=== PATIENT | female | born 1935 | race Caucasian/White ===

== ENCOUNTER 2016-10-30 17:24 | Inpatient (IN) | payer MEDICARE, BC ==
[2016-10-30 19:08] LABS: BASOPHIL# 0.4 X 10^3uL (0.0-0.1); BASOPHILS 4.8 % (0.0-2.0); EOSINOPHILS# 0.2 X 10^3uL (0.0-0.4); HEMATOCRIT 36.8 % (36.0-48.0); HEMOGLOBIN 12.1 g/dL (12.0-16.0); LYMPHOCYTES 16.1 % (20.0-40.0); LYMPHOCYTES# 1.2 X 10^3uL (0.8-3.8); MEAN CELL VOLUME 92.2 fL (80.0-100.0); MEAN CORPUSCULAR HEMOGLOBIN 30.4 pg (29.0-35.0); MEAN PLATELET VOLUME 10.4 fL (7.4-10.4); MONOCYTES 11.7 % (2.0-10.0); MONOCYTES# 0.9 X 10^3uL (0.2-1.0); NEUTROPHILS 65.4 % (54.0-75.0); NEUTROPHILS# 4.9 X 10^3uL (2.6-6.7); PLATELET COUNT 262 X 10^3uL (130-440); RED BLOOD COUNT 3.99 X 10^6uL (4.20-6.10); RED CELL DISTRIBUTION WIDTH 14.4 % (11.5-14.5); WHITE BLOOD COUNT 7.6 X 10^3uL (3.9-10.7)
[2016-10-30 19:09] LABS: A/G RATIO 1.3; ALBUMIN 3.9 g/dL (3.5-5.0); ALKALINE PHOSPHATASE 77 U/L (38-126); ALT 66 U/L (9-52); AST 33 U/L (14-36); BILIRUBIN, TOTAL 0.5 mg/dL (0.2-1.3); BLOOD UREA NITROGEN 17 mg/dL (7-17); CALCIUM 9.6 mg/dL (8.4-10.2); CHLORIDE 107 mmol/L (98-107); GLUCOSE 106 mg/dL (70-100); POTASSIUM 4.4 mmol/L (3.5-5.1); SODIUM 141 mmol/L (137-145)
[2016-10-30 19:22] LABS: TROPONIN I < 0.012 ng/mL (0.00-0.034)
[2016-10-30] MEDS ORDERED: RIVAROXABAN 10 MG TABLET PO ONE (19:25)
[2016-10-30 19:42] LABS: INR 1.2
[2016-10-30] MEDS ORDERED: FUROSEMIDE 40 MG/4 ML VIAL ONE (20:15)
--- NOTE | 2016-10-30 21:10 | CT REPORT ---
History: Shortness of breath Comparison: None Technique: This examination was performed using automated exposure control, adjustment of mA or kV according to patient size, and/or use of iterative reconstruction technique. 5 mm transaxial images through the ch est with coronal reformatted images. 3-D images were also performed to better evaluate the pulmonary arteries Contrast: 100 cc Omnipaque 300 Findings: Soft tissues: Visualized portions of the thyroid gland: Non enlarged The thoracic aorta: Non aneurysmal. Pulmonary arteries: No evidence of pulmonary embolus seen. There is a moderately large hiatal hernia seen. No evidence of pericardial effusion. Scattered small mediastinal lymph nodes likely reactive. Status post cholecystectomy. Adrenal glands are not enlarged Lung windows: Bilateral large pleural effusions, right greater than left. Bibasilar compressive atele ctatic change adjacent to the large pleural effusions. Additional air bronchograms compatible with ai rspace consolidation seen at the right greater than left lung base. Bronchiectasis changes bilateral lungs involving the upper and lower lobes. No evidence of pneumothor ax. Cicatricial changes at the lung apices bilaterally. Subpleural reticular nodular thickening at the peripheral right middle lobe, image [id number], series 6. F indings are adjacent to surgical mel[place] in the right chest/breast soft tissues. There is soft tissue deformity and soft tissue prominence of the right breast adjacent to the surgical mel[place]. Findings could represent sequela of postradiation change but follow-up is recommended to exclude lymphangitic spread of tumor versus post infectious or post inflammatory disease. Correlation with the patient's m ammographic findings is also recommended. Osseous structures: Kyphosis of the thoracic spine. Vacuum disc phenomenon and endplate sclerosis at the thoracolumbar junction. Multilevel ossification of the anterior longitudinal ligament. Impression: No evidence of pulmonary embolus. Large bilateral pleural effusions. Bibasilar atelectatic change and right greater than left lower lob e airspace consolidation. Peripheral reticular nodular infiltration right middle lobe which could represent sequela of infectio us or inflammatory disease and scarring versus postradiation change. However follow-up recommended to exclude lymphangitic spread of tumor given evidence of surgical changes in the right breast adjacent to this location. Correlate with mammographic findings. Final Electronic Signature: This report was electronically signed by Gen Emmanuel MD on 10/30/2016 9: 08 PM. umesh /
[2016-10-30] MEDS ORDERED: HOME MEDICATION LIST NEEDED 1 EA EACH MISC ONE (21:40)
[2016-10-30] MEDS ORDERED: ACETAMINOPHEN 325 MG TABLET PO PRN (21:40)
[2016-10-30] MEDS ORDERED: ZOLPIDEM TARTRATE 5 MG TABLET PO PRN (21:40)
[2016-10-30] MEDS ORDERED: MAG-AL PLUS XS SUSP 30 ML UDC PO PRN (21:40)
[2016-10-30] MEDS ORDERED: POLYETHYLENE GLYCOL 3350 17 GM POWD.PACK PO PRN (21:40)
--- NOTE | 2016-10-30 23:13 | ER PHYSICIAN DOCUMENTATION ---
Physician Documentation [facility] Name:Summer Butler Age:80 yrs Sex:Female :1935 Arrival Date:10/30/2016 Time:17:24 BedD-1 Private MD: Thomas Subramanian Disposition: 10/30 20:53 Critical Care:. be Disposition: 10/30/16 20:54 Admit ordered for Michael Negrete. Preliminary diagnosis are Atrial Fibrillation, CHF (Congestive Heart Failure). - Bed requested for Medical/Surgical. - Condition is Improved. - Problem is new. - Symptoms have improved. 23 HR OBS No HPI: 17:42 This 80 yrs old Female presents to ER with complaints of Shortness Of Breath. 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 4 days ago noted increasing dyspnea, worse in the last two tl1 days since returning home to after a month vacation in [place]. Does have a h/o hypothyroidism on synthroid.. Historical: - Allergies: No known drug Allergies; Actonel; Hydrocodone-Acetaminophen; - Home Meds: 1. amlodipine 5 mg oral tab 1 tab once daily 2. hydroxychloroquine 200 mg oral tab 1 tab once daily 3. sulfacetamide sodium 10 % ophthalmic drop 1 drop every 2 hours 4. levothyroxine 50 mcg oral cap 1 cap once daily 5. losartan 50 mg oral tab 1 tab once daily 6. Estradiol Oral Unknown twice weekly 7. restasis - PMHx: CVA; urinary retention; RHEUMATOID ARTHRITIS; HYPOTHYROIDISM; hiatal hernia; ANXIETY; - PSHx: LUMPECTOMY; Cholecysectomy; laminectomy; Tonsillectomy; TUBAL LIGATION; - Tetanus: unknown. - Ebola Screening: : No symptoms or risks identified at this time. . - Immunization history: Unable to Obtain Pneumococcal vaccine status is unknown, Flu Vaccine < 1 year Flu Vaccine < 1 year. - Social history: Smoking status: Patient states was never smoker of tobacco. ROS: 20:13 Respiratory: Positive for dyspnea on exertion, shortness of breath, Negative for be hemoptysis, orthopnea, pleurisy. 20:13 All other systems are negative. Exam: 20:13 Constitutional: This is a well developed, well nourished patient who is awake, alert, be and in no acute distress. Head/Face: Normocephalic, atraumatic. Eyes: Pupils equal round and reactive to light, extra-ocular motions intact. Lids and lashes normal. Conjunctiva and sclera are non-icteric and not injected. Cornea within normal limits. Periorbital areas with no swelling, redness, or edema. ENT: Nares patent. No nasal discharge, no septal abnormalities noted. Tympanic membranes are normal and external auditory canals are clear. Oropharynx with no redness, swelling, or masses, exudates, or evidence of obstruction, uvula midline. Mucous membranes moist. Neck: Trachea midline, no thyromegaly or masses palpated, and no cervical lymphadenopathy. Supple, full range of motion without nuchal rigidity, or vertebral point tenderness. No Meningismus. Abdomen/GI: Soft, non-tender, with normal bowel sounds. No distension or tympany. No guarding or rebound. No evidence of tenderness throughout. 20:13 Neuro: Awake and alert, GCS 15, oriented to person, place, time, and situation. be Cranial nerves II-XII grossly intact. Motor strength 5/5 in all extremities. Sensory grossly intact. Cerebellar exam normal. Normal gait. 20:13 Cardiovascular: Rate: normal, Rhythm: regular, Pulses: no pulse deficits are appreciated, Heart sounds: normal, Edema: 1+ edema to level of left ankle and right ankle. 20:13 Respiratory: Respirations: normal, no use of accessory muscles, no grunting, no evidence of nasal flaring, Breath sounds: rales, are located in both bases. Vital Signs: 17:27 BP 140 / 93 (auto/); lpr 17:30 Pulse 116 MON; Resp 21; Pulse Ox 92% ; Weight 68.04 kg (R); Height 5 ft. 8 in. (172.72 lpr cm); Pain 0/10; 17:45 BP 136 / 79 (auto/); lpr 17:50 Pulse 96 MON; Resp 18; Pulse Ox 95% ; lpr 18:01 BP 135 / 61 (auto/); lpr 18:05 Pulse 93 MON; Resp 17; Pulse Ox 94% ; lpr 18:30 BP 132 / 79 (auto/); lpr 18:35 Pulse Ox 90% ; lpr 17:30 Body Mass Index 22.81 (68.04 kg, 172.72 cm) lpr MDM: 17:42 Patient medically screened. tl1 20:15 Differential diagnosis: Anemia Bronchitis CHF exacerbation, Myocardial Infarction be pneumonia, pulmonary edema, Pulmonary Embolism Atrial fibrillation. Antibiotic administration: Not indicated. Data reviewed: vital signs, nurses notes, lab test result(s), EKG, radiologic studies. Data interpreted: Pulse oximetry: on 2L(s) per nasal cannula, 100%. 20:55 Data reviewed: and as a result, I will admit patient, Xarelto 15 mg po, Lasix 40 mg be IVP, O2 for hypoxemia. 21:45 EKG attached lp 10/30 19:18 Order name: DDIMER; Complete Time: 20:49 EDMS 10/30 19:37 Interpretation: Normal Except: minimally elevated. be 10/30 19:19 Order name: CBC AUTO DIF, MDIF/RMOR IF IND; Complete Time: 20:49 EDMS 10/30 19:38 Interpretation: Normal. be 10/30 19:23 Order name: COMPREHENSIVE METABOLIC PANEL; Complete Time: 20:49 EDMS 10/30 19:38 Interpretation: Normal Except: hyperglycemia. be 10/30 19:23 Order name: BNP,NT-PRO; Complete Time: 20:49 EDMS 10/30 19:38 Interpretation: Abnormal: abnormal. be 10/30 19:23 Order name: TROPONIN I; Complete Time: 20:49 EDMS 10/30 19:38 Interpretation: Normal. be 10/30 19:46 Order name: PROTIME/INR; Complete Time: 20:49 EDMS 10/30 20:49 Interpretation: Normal. be 10/30 20:18 Order name: THYROID STIMULATING HORMONE; Complete Time: 20:49 EDMS 10/30 20:49 Interpretation: Normal. be 10/31 02:34 Order name: UA W/ MICRO -CULTURE IF IND EDMS 10/31 06:43 Order name: CBC AUTO DIF, MDIF/RMOR IF IND EDMS 10/31 06:59 Order name: BASIC METABOLIC PANEL EDMS 10/31 06:59 Order name: IRON PANEL EDTN 10/31 06:59 Order name: MAGNESIUM EDMS 10/31 06:59 Order name: BNP,NT-PRO EDMS 10/31 06:59 Order name: TROPONIN I EDMS 10/30 21:12 Order name: CAT SCAN; CHEST ANGIO [id number]; Complete Time: 23:23 EDMS 10/30 23:23 Interpretation: Normal Except: large right>left pleural effusions, atelectaisis. be 10/31 08:59 Order name: CXR 2V [id number] EDMS 10/30 18:35 Order name: EKG - 12 Lead; Complete Time: 18:47 tl1 Dispensed Medications: 19:07 CANCELLED (Physician Discretion): Xarelto 20 mg PO once; administer with evening meal be 19:16 Drug: Xarelto 15 mg; Route: PO; lp 20:10 Follow up: Response: No adverse reaction; No change in condition lp 20:05 Drug: Lasix 40 mg; Route: IVP; Site: right hand; mv 21:43 Follow up: Response: No adverse reaction; No change in condition lp Critical care time excluding procedures: 20:53 Critical care time: Bedside Care: 20 minutes, Consultation: 10 minutes, Family be Intervention: 10 minutes. Total time: 40 minutes Signatures: Joi Goldsmith RN RN lp Thomas Mitchell MD MD be Leigha Durbin RN RN lpr Leigh, Tom, MD MD tl1 shell campos
--- NOTE | 2016-10-30 23:13 | ER NURSING DOCUMENTATION ---
Nurse's Notes [facility] Name:Summer Butler Age:80 yrs Sex:Female :1935 Arrival Date:10/30/2016 Time:17:24 BedD-1 Private MD: Diagnosis:Atrial Fibrillation;CHF (Congestive Heart Failure) Presentation: 10/30 17:25 Presenting complaint: Patient states: developed SOB and bilateral lower edema X 2 days. lpr Returned yesterday from a month long trip by car/train. Denies chest pain. Patient's states she has been extremely fatigued. 17:29 Acuity: BON 2 rh 18:41 Transition of care: patient was not received from another setting of care. lpr 18:41 Method Of Arrival: Walk In lpr Triage Assessment: 18:43 General: Appears in no apparent distress, Behavior is cooperative. Pain: Denies pain. lpr EENT: Oral mucosa is moist. Neuro: Level of Consciousness is awake, alert, obeys commands, Oriented to person, place, time, event. Cardiovascular: Chest pain is denied. Respiratory: Reports shortness of breath at rest since 2 days ago Onset: The symptoms/episode began/occurred 2 days prior to arrival , the patient has mild shortness of breath. Historical: - Allergies: No known drug Allergies; Actonel; Hydrocodone-Acetaminophen; - Home Meds: 1. amlodipine 5 mg oral tab 1 tab once daily 2. hydroxychloroquine 200 mg oral tab 1 tab once daily 3. sulfacetamide sodium 10 % ophthalmic drop 1 drop every 2 hours 4. levothyroxine 50 mcg oral cap 1 cap once daily 5. losartan 50 mg oral tab 1 tab once daily 6. Estradiol Oral Unknown twice weekly 7. restasis - PMHx: CVA; urinary retention; RHEUMATOID ARTHRITIS; HYPOTHYROIDISM; hiatal hernia; ANXIETY; - PSHx: LUMPECTOMY; Cholecysectomy; laminectomy; Tonsillectomy; TUBAL LIGATION; - Tetanus: unknown. - Ebola Screening: : No symptoms or risks identified at this time. . - Immunization history: Unable to Obtain Pneumococcal vaccine status is unknown, Flu Vaccine < 1 year Flu Vaccine < 1 year. - Social history: Smoking status: Patient states was never smoker of tobacco. Screenin:47 Infectious Disease Risk None. Abuse screen: Denies threats or abuse. Nutritional lpr screening: No deficits noted. Assessment: 18:47 See Triage Assessment done by same RN. Cardiovascular: Rhythm is regular. Respiratory: lpr Airway is patent Respiratory effort is even, unlabored. 19:21 Respiratory: lp 19:22 Respiratory: Breath sounds are clear bilaterally. lp Vital Signs: 17:27 BP 140 / 93 (auto/); lpr 17:30 Pulse 116 MON; Resp 21; Pulse Ox 92% ; Weight 68.04 kg (R); Height 5 ft. 8 in. (172.72 lpr cm); Pain 0/10; 17:45 BP 136 / 79 (auto/); lpr 17:50 Pulse 96 MON; Resp 18; Pulse Ox 95% ; lpr 18:01 BP 135 / 61 (auto/); lpr 18:05 Pulse 93 MON; Resp 17; Pulse Ox 94% ; lpr 18:30 BP 132 / 79 (auto/); lpr 18:35 Pulse Ox 90% ; lpr 17:30 Body Mass Index 22.81 (68.04 kg, 172.72 cm) lpr ED Course: 17:29 Patient arrived in ED. dp 17:29 Triage completed. rh 17:41 Danyel Woodard MD is Attending Physician. tl1 18:44 Attending Physician role handed off by Danyel Woodard MD be 18:44 Thomas Mitchell MD is Attending Physician. be 18:45 EKG done per protocol. Performed by ED Staff. Shown to ED physician. ew 18:46 Inserted saline lock: 20 gauge in right forearm and blood collected. ew 18:47 Valuables Remains with patient Patient has correct armband on for positive lpr identification. Placed in gown. Bed in low position. Call light in reach. Side rails up X 1. 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 Pulse ox on. NIBP on. 18:50 Report given to Joi Goldsmith RN. lpr 19:05 Joi Goldsmith RN is Primary Nurse. lp 19:24 Patient moved to radiology. mr 20:25 Inserted peripheral IV: saline lock: 20 gauge in left antecubital area. mv 20:[address] dnn 20:51 Chela Christy MD is Referral Physician. be 20:54 Michael Negrete MD is Admitting Physician. be 20:[address] from [address]. mr 21:45 EKG attached lp Administered Medications: 19:07 CANCELLED (Physician Discretion): Xarelto 20 mg PO once; administer with evening meal be 19:16 Drug: Xarelto 15 mg; Route: PO; lp 20:10 Follow up: Response: No adverse reaction; No change in condition lp 20:05 Drug: Lasix 40 mg; Route: IVP; Site: right hand; mv 21:43 Follow up: Response: No adverse reaction; No change in condition lp Outcome: 20:52 Discharge ordered by MD. be 20:54 Decision to Admit by Provider. be 23:12 Admitted to Med/surg accompanied by nurse. lp 23:12 Condition: stable 23:12 Report given to Andi SPAIN 23:12 Instructed on discharge instructions, follow up and referral plans. need to admit 23:12 Patient left the ED. lp Signatures: Joi Goldsmith RN RN lp Thomas Mitchell MD MD be Roberts, Leslie, RN RN lpr Isauro Perdue Tom, MD MD tl1 Hofsess, Rachel rh vogel, margaux mv Wooley, Erin ew Rivera, Michael mr Palacios, Denise dp
[2016-10-31 02:33] LABS: URINE APPEARANCE CLEAR; URINE COLOR PALE YELLOW; URINE MUCUS NONE SEEN (Up to 25%); URINE RBC NONE SEEN (0-5/hpf); URINE SQUAMOUS EPITHELIAL CELL NONE SEEN (<= 15/hpf); URINE WBC NONE SEEN (0-4/hpf)
[2016-10-31 02:34] LABS: URINE BACTERIA NONE SEEN (<10/hpf); URINE BILIRUBIN NEGATIVE (NEGATIVE); URINE BLOOD TRACE (NEGATIVE); URINE GLUCOSE NORMAL (NEGATIVE); URINE KETONE NEGATIVE (NEGATIVE); URINE LEUKOCYTE ESTERASE NEGATIVE (NEGATIVE); URINE NITRITE NEGATIVE (NEGATIVE); URINE PROTEIN NEGATIVE (NEG - TRACE); URINE UROBILINOGEN 0.2mg/dL (Normal) (NEG-1mg/dL)
[2016-10-31 06:37] LABS: BLOOD UREA NITROGEN 16 mg/dL (7-17); CALCIUM 8.9 mg/dL (8.4-10.2); CHLORIDE 104 mmol/L (98-107); GLUCOSE 92 mg/dL (70-100); IRON 36 ug/dL (37-170); MAGNESIUM 1.9 mg/dL (1.6-2.3); POTASSIUM 4.1 mmol/L (3.5-5.1); SODIUM 139 mmol/L (137-145)
[2016-10-31 06:40] LABS: BASOPHIL# 0.1 X 10^3uL (0.0-0.1); BASOPHILS 1.5 % (0.0-2.0); EOSINOPHILS 1.6 % (0.0-6.0); EOSINOPHILS# 0.1 X 10^3uL (0.0-0.4); LYMPHOCYTES# 0.9 X 10^3uL (0.8-3.8); MEAN CELL VOLUME 90.8 fL (80.0-100.0); MEAN CORPUS. HGB CONCENTRATION 33.4 g/dL (32.0-36.0); MEAN CORPUSCULAR HEMOGLOBIN 30.3 pg (29.0-35.0); MEAN PLATELET VOLUME 10.4 fL (7.4-10.4); MONOCYTES 11.7 % (2.0-10.0); MONOCYTES# 0.9 X 10^3uL (0.2-1.0); NEUTROPHILS 73.4 % (54.0-75.0); NEUTROPHILS# 5.6 X 10^3uL (2.6-6.7); PLATELET COUNT 267 X 10^3uL (130-440); RED CELL DISTRIBUTION WIDTH 14.6 % (11.5-14.5); WHITE BLOOD COUNT 7.6 X 10^3uL (3.9-10.7)
[2016-10-31 06:42] LABS: LYMPHOCYTES 11.8 % (20.0-40.0); RED BLOOD COUNT 3.63 X 10^6uL (4.20-6.10)
[2016-10-31 06:44] LABS: TOTAL IRON BINDING CAPACITY 325 ug/mL (250-400); TRANSFERRIN 218 mg/dL (206-381); TRANSFERRIN SATURATION 11 % (14-50)
[2016-10-31 06:52] LABS: TROPONIN I 0.014 ng/mL (0.00-0.034)
[2016-10-31 07:00] VITALS: PULSE 77
--- NOTE | 2016-10-31 07:30 | HISTORY & PHYSICAL ---
Chief complaint: Short of breath. Swelling legs. HPI: 80-year-old female. Generally followed by Dr. Christy. In her usual state of health until recently. 10 weeks ago, she underwent surgery for bladder prolapse with Dr. Russell. Procedure went well. No significant postoperative complications. Spent the last month traveling in [place]. Over the last 3 weeks, she started to note a little bit of increase of swelling in her legs and with this slight increase in her paresthesias from her lower extremity peripheral neuropathy. In association with this, she felt that her strength was somewhat worsened as was her balance. Over a similar timeframe, she started to notice slight increase in shortness of breath which became significantly worse over the last few days as she was traveling back to [place] (via train and car). Of note, the worsening shortness of breath started even at lower altitudes. Association with this, she has had orthopnea but not PND. Increase in dyspnea on exertion. No shortness of breath today that she called the clinic and was directed to the emergency department for further evaluation. In the emergency department, she was found to be in atrial fibrillation with a minimally elevated heart rate. Her chest x-ray showed evidence of fluid overload with pulmonary edema and pleural effusions. Based upon evidence of heart failure, new onset atrial fibrillation, and hypoxemia with ambulation, she is being admitted to the hospital for further evaluation and treatment. She denies any chest pain or palpitations. Mild cough over the last 24 hours which has been nonproductive. No fevers or chills. No hemoptysis. No recent changes in her medications for blood pressure or thyroid. She has been eating out more and probably eating more salt. She denies any recent infections, abdominal pain, nausea, vomiting, dysuria, hematuria, constipation, or diarrhea. Past medical history: History of fracture of the left hip. History of hip joint replacement. PMR. Stroke in 2002 (hemorrhagic). History of iron deficiency anemia. History of breast cancer. Rheumatoid arthritis with chronic hydroxychloroquine use. Peripheral neuropathy with bilateral lower extremity weakness. Spinal stenosis of lumbar region with history of sciatica. Irritable bowel syndrome. Hypertension. Anxiety. Vitamin D deficiency. Hypothyroidism. Past surgical history: Excision of benign vaginal inclusion cyst 07/2014 Breast lumpectomy 2002 Cholecystectomy 1991 Dilation and curettage of uterus Laminectomy L4-L5 with interbody fusion Multiple foot surgeries Tonsillectomy and adenoidectomy Tubal ligation Bladder suspension for prolapse bladder 2017 Allergies: Actonel with unknown reaction. Hydrocodone with unknown reaction. Medications: Amlodipine 5 mg by mouth daily Hydroxychloroquine 200 mg by mouth daily Multivitamin 1 by mouth daily Calcium one by mouth daily Iron sulfate 325 mg 1 by mouth daily Losartan 50 mg daily Levothyroxine 50 g by mouth daily Restasis 0.05% emulsion 1 drop to each eye 2 times daily Social: No tobacco. Occasional alcohol. Retired. Family history: Noncontributory. Review of systems: Pertinent positives and negatives as above. Remainder are negative. Physical examination: Vital signs: Temperature not recorded blood pressure initially 140/93 with a pulse initially of 116 now down to 93. Respirations 21 and saturating 92% on room air. Desaturating into the high 70s with ambulation however. Weight 68 kg. General: Well-developed female. No apparent distress. Breathing with mild tachypnea but no use of accessory muscles. HEENT: Normocephalic atraumatic. Sinuses nontender. Pupils equal, round, and reactive to light. Extraocular muscles appear intact with full range of motion. Oropharynx shows dry mucous membranes. Neck: Supple. JVD. Chest: Bibasilar rales. Decreased breath sounds bilateral bases. No wheezing. Decreased tactile fremitus right greater than left. Cardiac: Irregularly irregular. I do not hear an S3. No murmur. JVD to angle of jaw at 45. 1+ bilateral pretibial pitting edema. Abdomen: Positive bowel sounds. Soft, nontender, nondistended. No hepatosplenomegaly. Extremities: No cyanosis or clubbing. Edema as above. Nontender. No cords. Lymph: No cervical, supraclavicular lymphadenopathy. Back: No CVA tenderness. Neuro: Alert and oriented 3. Facial expression symmetric. Light-touch sensation intact with the exception of mild paresthesias from the knee down bilaterally. Moving all 4 extremities equally. Labs: CBC showing white blood count of 7.6 with hematocrit of 37 with normal MCV. Platelets normal at 262. BMP normal other than glucose of 106. Creatinine 0.8. Sodium and potassium normal. LFTs showing mildly elevated ALT at 66. BNP elevated at 2320. Troponin negative. INR 1.2. TSH 1.16. EKG: Atrial fibrillation with normal rate. No acute ST segment changes. No Q waves. Chest x-ray: Pulmonary edema. Bilateral pleural effusions. CT angiogram of chest: No pulmonary embolus. Bilateral pleural effusions. No focal infiltrate. Assessment and plan: 1. Atrial fibrillation: New onset. Unclear if heart failure led to atrial fibrillation or if atrial fibrillation led to heart failure. No evidence of recent [place]. No history of significant valve disease. She does have underlying hypertension as well as age of 80. Electrolytes are acceptable. Will check magnesium. TSH is normal. No evidence of pulmonary embolus. No evidence of anemia. Hypoxemia from heart failure could have contributed. At this point, will be hospitalized for monitoring and further workup. Cardiology consultation. Echocardiogram. Follow cardiac enzymes. With good rate, hold off on rate controlling agent but will likely transition from amlodipine to metoprolol. She was given Rivaroxaban 1 in the emergency department. Will give Lovenox in the morning until further decisions made regarding anticoagulation. 2. CHF: New. In the setting of the above and it is unclear which precipitated the other. History of hypertension. No evidence of recent heart attack nor symptoms to suggest such. No evidence of PE. No recent viral illness. Thyroid appears to be well-controlled. Will check iron levels. Will check echocardiogram. Cardiology consultation. Will likely transition from amlodipine to a beta shlomo. She has already received furosemide 1 in the emergency department and is responding quite well. Consider re-dosing tomorrow. 3. Hypertension: As above. 4. Hypothyroidism: TSH normal. Continue levothyroxine. 5. Elevated LFTs: Likely in association with problem #2. Follow clinically. 6. Rheumatoid arthritis: No evidence of decompensation. Hydroxychloroquine has been associated with prolonged QT but is unlikely to have blood atrial fibrillation or heart failure. Continue hydroxychloroquine for now. 7. Peripheral neuropathy: Worsened with worsening edema. Follow clinically. 8. DVT prophylaxis: Full anticoagulation as above for her atrial fibrillation. 9. Cardiac resuscitation status: [place] MOST form reviewed. She has indicated full code. I will be following the patient covering for Dr. Christy until she returns. [facility]
[2016-10-31] MEDS: ENOXAPARIN SODIUM 100 MG/ML SYR SUBCUT SCH (08:29)
--- NOTE | 2016-10-31 08:42 | RADIOLOGY REPORT ---
A limited single portable view of the chest is compared with 11/28/2012. The cardiac silhouette is mildly enlarged. Central pulmonary vasculature is indistinct. There has been development of bilateral pleural effusions. Upper lung rainey are clear. IMPRESSION: Findings raise concern for a degree of congestive failure. Please see CT scan of the same date. MTDD
[2016-10-31 11:29] VITALS: BP 128/71; RESP 12; TEMP 98.1
--- NOTE | 2016-10-31 13:14 | DC SUMMARY: IM Note ---
Discharge Summary: IM/Peds Provider: Date of Admission: 10/30/16 Admitting Provider: DONELL MUNOZ MD Attending Provider: DRAKE CHRISTY MD Discharging Provider: DONELL MUNOZ MD Primary Care Provider: Discharge Date: 10/31/16 Consults: 10/30/16 22:40 Cardiology Consult [CONS] Routine Reason: A fib (new). CHF (new). - Diagnosis (1) Atrial fibrillation, controlled Status: Acute (2) Diastolic CHF, acute on chronic Status: Acute (3) Iron deficiency anemia Status: Chronic (4) Hypertension, benign Status: Chronic Hospital Course: As previously documented, new onset atrial fibrillation and evidence of CHF exacerbation. Suspect due to diastolic dysfunction. Cardiology consultation done. Echocardiogram done. Good ejection fraction but evidence of diastolic dysfunction and mild right pressure elevation. CT angiogram of the chest without pulmonary embolus. Cardiac enzymes without evidence of recent infarct. No focal wall motion abnormalities. Evidence of bilateral pleural effusion and pulmonary edema with elevated BNP. Electrolytes unremarkable. Thyroid normal. Treated with IV furosemide and will be transitioned to oral with potassium. Followed on telemetry. Good rate. We will stop amlodipine and start metoprolol at 50. Continue her ARB. Treated with Lovenox and hospital. Will transition to warfarin. Of note, history of iron deficiency anemia. No overt bleeding. Mild anemia with low iron levels. Starting on warfarin as above. Will need to be followed. Blood counts and INR ordered for later this week. She will follow up with cardiology in 1 week. She will follow-up with her primary care physician Dr. Christy in 2 weeks. Significant improvement overnight with decreased shortness of breath and decreased lower extremity edema. Plan as above. Discharge on oxygen which we may be able to stop over the next couple of weeks. - Time Spent with Patient Total time spent providing and/or coordinating discharge services: Time with patient DS: Less than 30 minutes Discharge - Patient/Caregiver Discharge Instructions Activity Level: As tolerated. Gradually increase. Diet: cardiac. Additional Instructions: Wear oxygen by nasal cannula at 2 liters per minute until reassessed in clinic. Follow up: FARIDEH SAMUEL MD [MD] - 11/07/16 10:40 am (PT HAS AN APPT WITH DR SAMUEL IN THE [facility] ON 11/07/16 @ 10:40AM ) DRAKE CHRISTY MD [Primary Care Provider] - 2 Weeks Overall discharge status: patient is progressing back to baseline Print Language: MALAY Home Medications: Furosemide [Lasix*] 20 mg PO DAILY #30 tab metoprolol SUCC ER [Toprol Xl*] 50 mg PO DAILY #30 tab Potassium Chloride ER [K-Dur*] 10 tab PO DAILY #30 tab Warfarin Sodium [Coumadin*] 5 mg PO DAILY #30 tab Disposition: HOME, SELF-CARE Discharge Summary Data - Medication History Medication History: Home Medications Multivitamins,Therapeutic [Thera Multivitamin*] 1 udtab PO DAILY #0 tablet 12/04 Acetaminophen [Tylenol*] 500 mg PO BID PRN 10/31/16 Biotin 1,000 mcg PO DAILY 10/31/16 Calcium Carbonate/Vitamin D3 [Calcium 600-Vit D3 400 Caplet] 1 each PO DAILY 03/09 Cyclosporine Ophth 0.05% [Restasis Ophth Emul 0.05%] 1 ea OP BID 10/31/16 Ferrous Sulfate [Ferrous Sulfate*] 1 tab PO DAILY 10/31/16 Furosemide [Lasix*] 20 mg PO DAILY #30 tab 10/31/16 Hydroxychloroquine Sulfate [Hydroxychloroquine Sulfate*] 200 mg PO DAILY Levothyroxine [Synthroid*] 50 mcg PO DAILY 10/31/16 Losartan Potassium [Cozaar*] 50 mg PO DAILY 10/31/16 Potassium Chloride ER [K-Dur*] 10 tab PO DAILY #30 tab 10/31/16 Warfarin Sodium [Coumadin*] 5 mg PO DAILY #30 tab 10/31/16 metoprolol SUCC ER [Toprol Xl*] 50 mg PO DAILY #30 tab 10/31/16 Inpatient Medications 10/31/16 21:00 Cyclosporine Ophth 0.05% [Restasis Ophth Emul 0.05%] 1 drop EACHEYE BID Enoxaparin Sodium [Lovenox] 70 mg SUBCUT Q12H 11/01/16 09:00 Ferrous Sulfate 325 mg PO DAILY Hydroxychloroquine Sulfate [Plaquenil] 200 mg PO DAILY Levothyroxine [Synthroid] 50 mcg PO DAILY Losartan Potassium [Cozaar] 50 mg PO DAILY Procedures and tests throughout hospitalization: Completed Lab Orders 10/31/16 06:05 BNP,NT-PRO [CHEM] Stat IRON PANEL [CHEM] Stat MAGNESIUM [CHEM] Stat TROPONIN I [CHEM] Stat Pending Orders 10/30/16 21:40 Resuscitation Status Routine 10/30/16 22:40 Cardiology Consult [CONS] Routine 10/30/16 22:41 Echo [Echocardiogram] [CARDIO] Urgent 10/31/16 07:00 EKG ONCE 10/31/16 21:00 Cyclosporine Ophth 0.05% [Restasis Ophth Emul 0.05%] 1 drop EACHEYE BID Enoxaparin Sodium [Lovenox] 70 mg SUBCUT Q12H 10/31/16 Breakfast Cardiac [DIET] 11/01/16 09:00 Ferrous Sulfate 325 mg PO DAILY Hydroxychloroquine Sulfate [Plaquenil] 200 mg PO DAILY Levothyroxine [Synthroid] 50 mcg PO DAILY Losartan Potassium [Cozaar] 50 mg PO DAILY Labs on day of discharge: Labs from last 24 hours 10/31/16 10/30/16 06:05 23:45 WBC 7.6 RBC 3.63 L Hgb 11.0 L Hct 33.0 L MCV 90.8 MCH 30.3 MCHC 33.4 RDW 14.6 H Plt Count 267 MPV 10.4 Neutrophils % 73.4 Lymphocytes % 11.8 L Eosinophils % 1.6 Basophils % 1.5 Neutrophils # 5.6 Lymphocytes # 0.9 Monocytes 11.7 H Monocytes # 0.9 Eosinophils # 0.1 Basophils # 0.1 Sodium 139 Potassium 4.1 Chloride 104 Carbon Dioxide 24 BUN 16 Creatinine 0.9 GFR Calculation Not Reportable Glucose 92 Calcium 8.9 Magnesium 1.9 Iron 36 L TIBC 325 Transferrin 218 Transferrin % Sat 11 L Troponin I 0.014 NT-Pro-B Natriuret Pep 2950 H Urine Color Pale yellow Urine Appearance Clear Urine pH 6.0 Ur Specific [place] 1.010 Urine Protein Negative Urine Ketones Negative Urine Blood Trace A Urine Nitrate Negative Urine Bilirubin Negative Urine Urobilinogen 0.2mg/dl (normal) Ur Leukocyte Esterase Negative Urine RBC None seen Urine WBC None seen Ur Squamous Epith Cells None seen Urine Bacteria None seen Urine Mucus None seen Urine Glucose Normal IM: Discharge Physical Exam - I&O/Vital Signs I&O: Intake & Output 10/30/16 10/31/16 10/31/16 21:59 05:59 13:59 Intake Total 350 Output Total 1100 Balance -750 Weight 67.585 kg Intake: Oral 350 Output: Urine 1100 Other: Urine Appearance Clear Clear Urine Color Pale Pale Stool Characteristics Soft Soft Formed Formed Voiding Method Toilet Toilet # Voids 4 Vital Signs: Last Vital Signs Temp 36.7 C 10/31/16 11:00 Pulse 77 10/31/16 11:00 Resp 12 10/31/16 11:00 BP 128/71 10/31/16 11:00 Pulse Ox 92 10/31/16 09:00 Oxygen Flow Rate 1 Oxygen Delivery Method Nasal Cannula - Constitutional General appearance: Absent: acute distress - Head Head exam: Present: normal inspection - Eye Eye exam: Present: EOMI - ENT ENT exam: Present: mucous membranes moist - Neck Neck exam: Present: full ROM - Respiratory Respiratory exam: Present: rales (bibasilar), other (decreased tactile fremitus bilaterally). Absent: rhonchi, wheezes - Cardiovascular Cardiovascular exam: Present: irregular rhythm. Absent: S3, systolic murmur - GI/Abdominal GI/Abdominal exam: Present: normal bowel sounds. Absent: organomegaly, tenderness - Extremities Exam Extremities exam: Present: edema (trace bilateral) - Neurological Exam Neurological exam: Present: oriented X3 - Psychiatric Psychiatric exam: Absent: anxious, depressed - Skin Skin exam: Absent: rash - Allied Health Notes Allied health notes reviewed: nursing
[2016-10-31 13:41] VITALS: O2SAT 91
[2016-10-31] MEDS ORDERED: CYCLOSPORINE OPHTH 0.05% 1 DROP/0.4 ML DROPERETTE EACHEYE SCH ×2 (21:00)
[2016-10-31] MEDS ORDERED: ENOXAPARIN SODIUM 80 MG/0.8 ML SYR SUBCUT SCH (21:00)
[2016-11-01] MEDS ORDERED: FERROUS SULFATE 325 MG TABLET PO SCH ×2 (09:00)
[2016-11-01] MEDS ORDERED: LOSARTAN POTASSIUM 50 MG TABLET PO SCH (09:00)
[2016-11-01] MEDS ORDERED: LEVOTHYROXINE 50 MCG TABLET PO SCH (09:00)
[2016-11-01] MEDS ORDERED: HYDROXYCHLOROQUINE SULFATE 200 MG TABLET PO SCH (09:00)
== END 2016-10-31 15:43 | disposition home or self-care (01) | DRG 293 ==
LOC: ER 17:24 → IN 22:06
PROVIDERS: ADMIT Internal Medicine; ATTEND Internal Medicine
DX: I50.33 Acute on chronic diastolic (congestive) heart failure (principal); I48.91 Unspecified atrial fibrillation; I11.0 Hypertensive heart disease with heart failure; D50.8 Other iron deficiency anemias; M06.89 Other specified rheumatoid arthritis, multiple sites; Z85.3 Personal history of malignant neoplasm of breast; E03.9 Hypothyroidism, unspecified; Z86.73 Personal history of transient ischemic attack (TIA), and cerebral infarction without residual deficits; E55.9 Vitamin D deficiency, unspecified; G62.9 Polyneuropathy, unspecified; M48.06 Spinal stenosis, lumbar region; K58.9 Irritable bowel syndrome, unspecified; R94.5 Abnormal results of liver function studies; Z79.899 Other long term (current) drug therapy
CPT/HCPCS: 36415; 71020; 71275; 80048; 80053; 81001; 83540; 83735; 83880; 84443; 84466; 84484; 85025; 85379; 85610; 93005; 93010; 93041; 93306; 96374; 99285; J1650; J1940